=== PATIENT | male | born 1930 | race Caucasian/White ===

== ENCOUNTER → 2017-01-07 | Outpatient (CLI) | payer OTHER, MEDICARE ==
[~2017-01-07] MED LIST: ALL300 PO; ATEN100T PO; DXY100 PO; GLC5 PO; LEVO50TA PO; LSN20 PO; OSEL30CA PO; SIMV40TA4 PO; WARF2TAB PO
[2017-01-07 13:07] LABS: BLOOD UREA NITROGEN 17 mg/dl (7-18); BUN/CREATININE RATIO 14.1 (10-20); CALCIUM 9.1 mg/dl (8.5-10.1); CARBON DIOXIDE 26 mmol/L (21-32); CHLORIDE 107 mmol/L (98-107); CHOLESTEROL 117 mg/dl (0-200); GLUCOSE 158 mg/dl (70-99); POTASSIUM 4.2 mmol/L (3.5-5.1); SODIUM 144 mmol/L (136-145); TRIGLYCERIDES 92 mg/dl (0-150); VERY LOW DENSITY LIPOPROT CALC 18 mg/dl
[2017-01-07 13:08] LABS: CHOLESTEROL/HDL RATIO 2.3; HDL CHOLESTEROL 51 mg/dl; LDL CHOLESTEROL CALCULATED 48 mg/dl
[2017-01-07 13:55] LABS: ESTIMATED AVERAGE GLUCOSE 189 mg/dl; HA1C FLAG Normal (Normal)
== END | disposition home or self-care (01) ==
LOC: C.LABPVFM 07:55
PROVIDERS: ATTEND Family Medicine
DX: E11.9 Type 2 diabetes mellitus without complications (principal); I48.91 Unspecified atrial fibrillation

== ENCOUNTER → 2017-04-22 | Outpatient (CLI) | payer OTHER, MEDICARE ==
[2017-04-22 13:23] LABS: ESTIMATED AVERAGE GLUCOSE 171 mg/dl; HA1C FLAG Normal (Normal)
[2017-04-22 13:52] LABS: BLOOD UREA NITROGEN 16 mg/dl (7-18); BUN/CREATININE RATIO 11.9 (10-20); CARBON DIOXIDE 28 mmol/L (21-32); CHLORIDE 108 mmol/L (98-107); CHOLESTEROL 109 mg/dl (0-200); GLUCOSE 122 mg/dl (70-99); POTASSIUM 4.3 mmol/L (3.5-5.1); SODIUM 142 mmol/L (136-145); TRIGLYCERIDES 94 mg/dl (0-150); VERY LOW DENSITY LIPOPROT CALC 19 mg/dl
[2017-04-22 13:55] LABS: CHOLESTEROL/HDL RATIO 2.3; HDL CHOLESTEROL 48 mg/dl; LDL CHOLESTEROL CALCULATED 42 mg/dl
[2017-04-22 13:56] LABS: CALCIUM 8.9 mg/dl (8.5-10.1)
== END | disposition home or self-care (01) ==
LOC: C.LABPVFM 07:46
PROVIDERS: ATTEND Family Medicine
DX: E11.9 Type 2 diabetes mellitus without complications (principal)

== ENCOUNTER → 2017-07-16 | Outpatient (CLI) | payer OTHER, MEDICARE ==
[2017-07-16 13:26] LABS: ESTIMATED AVERAGE GLUCOSE 174 mg/dl; HA1C FLAG Normal (Normal)
[2017-07-16 13:45] LABS: BLOOD UREA NITROGEN 31 mg/dl (7-18); BUN/CREATININE RATIO 24.2 (10-20); CALCIUM 9.7 mg/dl (8.5-10.1); CARBON DIOXIDE 26 mmol/L (21-32); CHLORIDE 104 mmol/L (98-107); CHOLESTEROL 133 mg/dl (0-200); GLUCOSE 207 mg/dl (70-99); POTASSIUM 4.9 mmol/L (3.5-5.1); SODIUM 137 mmol/L (136-145); TRIGLYCERIDES 117 mg/dl (0-150); VERY LOW DENSITY LIPOPROT CALC 23 mg/dl
[2017-07-16 13:49] LABS: CHOLESTEROL/HDL RATIO 2.2; HDL CHOLESTEROL 61 mg/dl; LDL CHOLESTEROL CALCULATED 49 mg/dl
== END | disposition home or self-care (01) ==
LOC: C.LABPVFM 07:37
PROVIDERS: ATTEND Family Medicine
DX: E11.9 Type 2 diabetes mellitus without complications (principal); I48.91 Unspecified atrial fibrillation

== ENCOUNTER → 2017-10-31 | Outpatient (CLI) | payer OTHER, MEDICARE ==
[2017-10-31 13:04] LABS: BLOOD UREA NITROGEN 25 mg/dl (7-18); BUN/CREATININE RATIO 20.7 (10-20); CALCIUM 9.2 mg/dl (8.5-10.1); CARBON DIOXIDE 27 mmol/L (21-32); CHLORIDE 106 mmol/L (98-107); GLUCOSE 169 mg/dl (70-99); POTASSIUM 4.2 mmol/L (3.5-5.1); SODIUM 138 mmol/L (136-145)
[2017-10-31 13:05] LABS: ESTIMATED AVERAGE GLUCOSE 174 mg/dl; HA1C FLAG Normal (Normal)
[2017-10-31 13:06] LABS: CHOLESTEROL 105 mg/dl (0-200); CHOLESTEROL/HDL RATIO 2.3; HDL CHOLESTEROL 46 mg/dl; LDL CHOLESTEROL CALCULATED 41 mg/dl; TRIGLYCERIDES 90 mg/dl (0-150); VERY LOW DENSITY LIPOPROT CALC 18 mg/dl
== END | disposition home or self-care (01) ==
LOC: C.LABPVFM 07:46
PROVIDERS: ATTEND Family Medicine
DX: E11.9 Type 2 diabetes mellitus without complications (principal); I48.91 Unspecified atrial fibrillation

== ENCOUNTER → 2018-01-27 | Outpatient (CLI) | payer OTHER, MEDICARE ==
[2018-01-27 13:05] LABS: BLOOD UREA NITROGEN 28 mg/dl (7-18); CALCIUM 9.3 mg/dl (8.5-10.1); CARBON DIOXIDE 28 mmol/L (21-32); CHOLESTEROL 117 mg/dl (0-200); CREATININE 1.29 mg/dl (0.60-1.40); GLUCOSE 147 mg/dl (70-99); POTASSIUM 4.4 mmol/L (3.5-5.1); SODIUM 139 mmol/L (136-145)
[2018-01-27 13:09] LABS: LDL CHOLESTEROL CALCULATED 47 mg/dl
== END | disposition home or self-care (01) ==
LOC: C.LABPVFM 07:55
PROVIDERS: ATTEND Family Medicine
DX: E11.9 Type 2 diabetes mellitus without complications (principal)